=== PATIENT | female | born 2000 ===

== ENCOUNTER 2020-11-30 21:30 | Emergency (ER) | payer SELFPAY ==
[2020-12-01] MEDS ORDERED: LIDOCAINE 1% MPF 5 ML VIAL ONE (01:38)
[2020-12-01 04:27] LABS: Body Fluid Source SYNOVIAL
[2020-12-01 04:28] LABS: Appearance TURBID (CLEAR); Body Fluid WBC 1849 /mm^3; Color of fluid Yellow (COLORLESS)
--- NOTE | 2020-12-01 04:39 | EDPHYS ---
Physician Documentation [facility] Name: Sunitha Stewart Age: 20 yrs Sex: Female : 2000 Arrival Date: 11/30/2020 Time: 21:45 Bed 26 Private MD: ED Physician Theo Pickens HPI: 12/01 03:36 This 20 yrs old Female presents to ER via Ambulatory with complaints of Swollen Knee. rn 03:36 The patient presents with pain, swelling. The complaints affect the left knee. Onset: rn The symptoms/episode began/occurred 3 day(s) ago. Modifying factors: The symptoms are alleviated by remaining still, the symptoms are aggravated by movement, weight bearing, bending knee. Associated signs and symptoms: Pertinent positives: swelling, Pertinent negatives calf tenderness, fever, warmth, weakness. Severity of symptoms: At their worst the symptoms were moderate, in the emergency department the symptoms are unchanged. The patient has experienced similar episodes in the past. Reports left knee swelling and pain, no trauma, no fever, has happened twice before without diagnosis. Reports had knee drained in ER before years ago.. 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 - Social history:: Smoking status: Patient denies any tobacco usage or history of. - Family history:: not pertinent. - Hospitalizations: : No recent hospitalization is reported. ROS: 12/01 03:36 Constitutional: Negative for fever, chills, and weight loss, Eyes: Negative for injury, rn pain, redness, and discharge, Cardiovascular: Negative for chest pain, palpitations, and edema, Respiratory: Negative for shortness of breath, cough, wheezing, and pleuritic chest pain, Abdomen/GI: Negative for abdominal pain, nausea, vomiting, diarrhea, and constipation, Back: Negative for injury and pain, MS/Extremity: + left knee swelling and pain Skin: Negative for injury, rash, and discoloration, Neuro: Negative for headache, weakness, numbness, tingling, and seizure. Exam: 03:36 Constitutional: This is a well developed, well nourished patient who is awake, alert, rn and in no acute distress. Cardiovascular: Regular rate and rhythm. No pulse deficits. Respiratory: No increased work of breathing, no retractions or nasal flaring. MS/ Extremity: Pulses equal, no cyanosis. Neurovascular intact. + moderate left knee effusion without erythema/warmth/overlying skin changes. + painful ROM left knee. Vital Signs: 11/30 21:58 BP 110 / 75; Pulse 76; Resp 18; Temp 97.3; Pulse Ox 98% ; Weight 45.36 kg; Height 4 ft. ea 11 in. (149.86 cm); 12/01 03:14 BP 117 / 80; Pulse 98; Resp 16 S; Pulse Ox 98% on R/A; Pain 4/10; bb 04:53 BP 125 / 75; Pulse 87; Resp 16 S; Temp 98.4(O); Pulse Ox 100% on R/A; bb 11/30 21:58 Body Mass Index 20.20 (45.36 kg, 149.86 cm) ea Procedures: 02:39 Joint Treatment: Aspiration of left knee using 22g needle. Removed 30 ml's of yellow rn fluid, bloody fluid, Specimen sent to lab. Patient tolerated well. MDM: 00:55 Patient medically screened. rn 04:35 Differential diagnosis: inflammatory arthritis, knee effusion, reactive arthritis. Data rn reviewed: vital signs, nurses notes, lab test result(s), radiologic studies, plain films, and as a result, I will discharge patient. Counseling: I had a detailed discussion with the patient and/or guardian regarding: the historical points, exam findings, and any diagnostic results supporting the discharge/admit diagnosis, lab results, radiology results, the need for outpatient follow up, to return to the emergency department if symptoms worsen or persist or if there are any questions or concerns that arise at home. Response to treatment: the patient's symptoms have markedly improved after treatment, and as a result, I will discharge patient. Special discussion: I discussed with the patient/guardian in detail that at this point there is no indication for admission to the hospital. It is understood, however, that if the symptoms persist or worsen the patient needs to return immediately for re-evaluation. Based on the history and exam findings, there is no indication for further emergent testing or inpatient evaluation. I discussed with the patient/guardian the need to see the orthopedic surgeon for further evaluation of the symptoms. ED course: Body fluid profile indicates more inflammatory or reactive arthritis and not septic arthritis. Xray without fracture/dislocation. Has happened multiple times for patient, will dc home now that has increased ROM after joint aspiration of 30cc synovial fluid.. 12/01 02:25 Order name: Body Fluid Culture mw2 12/01 02:30 Order name: Body Fluid Cell Count; Complete Time: 04:35 EDMS 11/30 23:53 Order name: XRAY Knee LEFT 3 view; Complete Time: 19:02 bb 12/01 02:31 Order name: Body Fluid Crystals; Complete Time: 04:35 EDMS Administered Medications: 02:15 Drug: Lidocaine (1 %) 1 vials {Note: administered by Dr Pickens to affected area.} bb Volume: 5 ml; Route: Infiltration; Disposition: 12/01/20 04:38 Discharged to Home. Impression: Effusion, left knee. - Condition is Stable. - Discharge Instructions: Knee Effusion, Knee Arthrocentesis. - Medication Reconciliation Form, Thank You Letter, Antibiotic Education, Prescription Opioid Use form. - Follow up: Beau Magana MD; When: As needed; Reason: Recheck today's complaints, Re-evaluation by your physician. - Problem is an ongoing problem. - Symptoms have improved. Signatures: Dispatcher [employer] EDCarmen Herrmann RN RN bb Nieto, Roman, MD MD rn Antunez, Elena, RN RN ea Corrections: (The following items were deleted from the chart) 04:55 04:38 12/01/2020 04:38 Discharged to Home. Impression: Effusion, left knee. Condition bb is Stable. Forms are Medication Reconciliation Form, Thank You Letter, Antibiotic Education, Prescription Opioid Use. Follow up: Beau Magana; When: As needed; Reason: Recheck today's complaints, Re-evaluation by your physician. Problem is an ongoing problem. Symptoms have improved. rn
--- NOTE | 2020-12-01 04:39 | ER ---
Nurse's Notes [facility] Name: Sunitha Stewart Age: 20 yrs Sex: Female : 2000 Arrival Date: 11/30/2020 Time: 21:45 Bed 26 Private MD: Diagnosis: Effusion, left knee Presentation: 11/30 21:58 Chief complaint: Patient states: Reports she started having swelling to her left knee ea about three days ago, states this has been going on and off for 4 years. Coronavirus screen: At this time, the client does not indicate any symptoms associated with coronavirus-19. Ebola Screen: No symptoms or risks identified at this time. Initial Sepsis Screen: Does the patient meet any 2 criteria? No. Patient's initial sepsis screen is negative. Does the patient have a suspected source of infection? No. Patient's initial sepsis screen is negative. Risk Assessment: Do you want to hurt yourself or someone else? Patient reports no desire to harm self or others. Onset of symptoms was November 30, 2020. 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 - Social history:: Smoking status: Patient denies any tobacco usage or history of. - Family history:: not pertinent. - Hospitalizations: : No recent hospitalization is reported. Screenin:59 Abuse screen: Denies threats or abuse. Nutritional screening: No deficits noted. ea Tuberculosis screening: No symptoms or risk factors identified. Fall Risk None identified. Assessment: 12/01 01:00 General: Appears in no apparent distress. uncomfortable, Behavior is calm, cooperative. bb Pain: Complains of pain in left knee. Neuro: Level of Consciousness is awake, alert, obeys commands, Oriented to person, place, time, situation. Cardiovascular: No deficits noted. Respiratory: Respiratory effort is even, unlabored, Respiratory pattern is regular. GI: No signs and/or symptoms were reported involving the gastrointestinal system. Derm: Skin is pink, warm \T\ dry. Musculoskeletal: Circulation, motion, and sensation intact. Swelling present in left knee. 02:00 Reassessment: Patient is alert, oriented x 3, equal unlabored respirations, skin bb warm/dry/pink. pt awaiting provider for procedure to knee. 02:53 Reassessment: Patient is alert, oriented x 3, equal unlabored respirations, skin bb warm/dry/pink. awaiting results of diagnostic test. 03:14 Reassessment: Patient is alert, oriented x 3, equal unlabored respirations, skin bb warm/dry/pink. pt resting quietly, eating, family at bedside. 04:49 Reassessment: Patient is alert, oriented x 3, equal unlabored respirations, skin bb warm/dry/pink. jaden wrap to left knee in place, pt verbalized understanding of and agrees to plan of care discharge instructions given pt ambulated to exit accompanied by family. Vital Signs: 11/30 21:58 BP 110 / 75; Pulse 76; Resp 18; Temp 97.3; Pulse Ox 98% ; Weight 45.36 kg; Height 4 ft. ea 11 in. (149.86 cm); 12/01 03:14 BP 117 / 80; Pulse 98; Resp 16 S; Pulse Ox 98% on R/A; Pain 4/10; bb 04:53 BP 125 / 75; Pulse 87; Resp 16 S; Temp 98.4(O); Pulse Ox 100% on R/A; bb 11/30 21:58 Body Mass Index 20.20 (45.36 kg, 149.86 cm) ea ED Course: 11/30 21:45 Patient arrived in ED. bp1 21:59 Triage completed. ea 12/01 00:55 Theo Pickens MD is Attending Physician. rn 01:00 Patient has correct armband on for positive identification. Bed in low position. Call bb light in reach. 01:13 XRAY Knee LEFT 3 view In Process Unspecified. EDMS 04:37 Beau Magana MD is Referral Physician. rn 04:49 Carmen Garcia RN is Primary Nurse. bb 04:54 No provider procedures requiring assistance completed. Patient did not have IV access bb during this emergency room visit. Administered Medications: 02:15 Drug: Lidocaine (1 %) 1 vials {Note: administered by Dr Pickens to affected area.} bb Volume: 5 ml; Route: Infiltration; Outcome: 04:38 Discharge ordered by . rn 04:54 Discharged to home ambulatory, with family. bb 04:54 Condition: stable 04:54 Discharge instructions given to patient, Instructed on discharge instructions, follow up and referral plans. Demonstrated understanding of instructions, follow-up care. 04:55 Patient left the ED. bb Signatures: Dispatcher [employer] EDCarmen Herrmann RN RN bb Nieto, Roman, MD MD rn Antunez, Elena, RN RN Monika Chang [facility] Corrections: (The following items were deleted from the chart) 11/30 22:00 22:00 Patient has correct armband on for positive identification. Bed in low position. ea Call light in reach. Side rails up X2. ea 22:00 22:00 Arm band placed on right wrist. Patient placed in an exam room, on a stretcher, ea on pulse oximetry, ea
[2020-12-01 05:19] VITALS: BP 125/75; TEMP 98.4; O2SAT 100
--- NOTE | 2020-12-01 07:12 | RAD REPORT ---
EXAM DESCRIPTION: RAD - Knee Left 3 View - 12/01/2020 1:12 am CLINICAL HISTORY: SWELLING COMPARISON: No comparisons FINDINGS: No fracture, dislocation or periosteal reaction.Small joint effusion is present. No joint space narrowing. No soft tissue abnormality. IMPRESSION: Small joint effusion without bone abnormality. Clinical concerns for internal derangement or occult bony injury could be further assessed with MR im aging.
== END 2020-12-01 04:55 | disposition home or self-care (01) ==
LOC: ER 21:30
PROC: 0S9D3ZZ Drainage of Left Knee Joint, Percutaneous Approach (ICD-10-PCS; principal; 2020-12-01)
DX: M25.462 Effusion, left knee (principal)
CPT/HCPCS: 36415; 87070; 89050; 89060; 99283